=== PATIENT | male | born 1975 | race Hispanic/Latino ===

== ENCOUNTER 2017-11-23 18:12 | Inpatient (IN) | payer SELFPAY ==
[2017-11-23 18:52] VITALS: BP 128/78
[2017-11-23 22:27] LABS: HEMATOCRIT 45.2 % (38.0-50.0); MCH 30.5 PG (29.0-34.0); MCHC 33.2 G/DL (30.0-36.0); MCV 91.9 FL (86-99); PLATELET COUNT 222 K/uL (156-360); RBC DIS.WIDTH-CV 12.7 % (11.8-14.6); RBC DIS.WIDTH-SD 43.1 % (39-53); RED BLOOD COUNT 4.92 M/uL (4.00-5.50)
[2017-11-23 22:41] LABS: CHLORIDE 104 mEq/L (99-109); SODIUM 138 mEq/L (136-147)
[2017-11-23 22:43] LABS: GLUCOSE 114 mg/dL (70-99)
[2017-11-23 22:47] LABS: GFR ESTIMATE (CALCULATED) > 59 mL/min/ (58.99-99999); UREA NITROGEN (BUN) 16 mg/dL (9-23)
[2017-11-24] VITALS (7 sets, daily range): BP systolic 98–143; BP diastolic 59–91
[2017-11-24 09:49] LABS: TROP-I INTERPRETATION NEGATIVE; TROPONIN-I < 0.01 ng/mL (0.0-0.30)
[2017-11-25 03:15] VITALS: BP 112/65
[2017-11-25 08:14] VITALS: BP 99/61
[2017-11-25 11:59] VITALS: BP 109/74
[2017-11-25 16:26] VITALS: BP 114/63
[2017-11-25 20:02] VITALS: BP 116/72
[2017-11-25 23:46] VITALS: BP 109/61
[2017-11-26 06:55] VITALS: BP 120/64
[2017-11-26] MEDS ORDERED: LEVAQUIN750 MG PO (08:27)
[2017-11-26] MEDS ORDERED: COLACE100 MG PO (08:27)
[2017-11-26] MEDS ORDERED: DILAUDID4 MG PO (08:27)
[2017-11-26] MEDS ORDERED: ONDANSETRON HCL8 MG PO (08:27)
[2017-11-26] MEDS ORDERED: OXYCONTIN10 MG PO (08:27)
[2017-11-26 08:28] LABS: BASOPHIL (%) 0.4 % (0-1); EOSINOPHIL (%) 1.8 % (0-5); EOSINOPHIL COUNT 0.2 K/uL (0-0.3); HEMATOCRIT 43.5 % (38.0-50.0); HEMOGLOBIN 13.9 G/DL (12.5-16.6); IMMATURE GRANULOCYTE (%) 0.7 % (0.0-0.7); LYMPHOCYTE (%) 21.3 % (15-42); LYMPHOCYTE COUNT 2.2 K/uL (1.0-2.8); MCH 29.8 PG (29.0-34.0); MCV 93.3 FL (86-99); MONOCYTE (%) 8.7 % (3-12); MONOCYTE COUNT 0.9 K/uL (0-0.8); NEUTROPHIL (%) 67.1 % (45-76); NEUTROPHIL COUNT 7.1 K/uL (1.8-6.4); PLATELET COUNT 269 K/uL (156-360); RBC DIS.WIDTH-CV 12.6 % (11.8-14.6); RBC DIS.WIDTH-SD 43.7 % (39-53); RED BLOOD COUNT 4.66 M/uL (4.00-5.50); WHITE BLOOD COUNT 10.5 K/uL (4.1-10.2)
== END 2017-11-26 12:04 | disposition home or self-care (01) | DRG 346 ==
LOC: 5EAST 18:12 → 2SOUTH 18:12 → ENRESERV 18:19 → 5EAST 18:31 → ENRESERV 11-24 14:23 → 2EAST 11-24 16:28
PROVIDERS: Physician Assistant Surgical; Surgery
PROC: 0D9P0ZZ Drainage of Rectum, Open Approach (ICD-10-PCS; principal; 2017-11-24)
DX: K61.2 Anorectal abscess (principal)
CPT/HCPCS: 72193; 80048; 84484; 85025; 85027; 87070; 87075; 87076; 87077; 87185; 87186; 87205; 88305; 93005; A6260; J0585; J1170; J1956; J2250; J2405; J2543; J3010; J7050; S0028

== ENCOUNTER → 2017-11-23 | Outpatient (CLI) | payer SELFPAY ==
[~2017-11-23] MED LIST: COLACE100 MG PO; DILAUDID4 MG PO; LEVAQUIN750 MG PO; ONDANSETRON HCL8 MG PO; OXYCONTIN10 MG PO
== END | disposition home or self-care (01) ==
LOC: RAD 14:34
DX: K61.0 Anal abscess (principal)
CPT/HCPCS: 72193